=== PATIENT | male | born 1955 | race Caucasian/White ===

== ENCOUNTER → 2024-10-06 06:42 | Outpatient (REF) | payer MEDICARE, SELFPAY | LOC: MRI 3T 06:42 | DX: S46.012S Strain of muscle(s) and tendon(s) of the rotator cuff of left shoulder, sequela (principal) | CPT/HCPCS: 73221 ==

== ENCOUNTER 2024-12-26 18:26 | Day surgery (SDC) | payer OTHER, SELFPAY ==
[2024-12-26 18:26] VITALS: BMI 29.6
[2024-12-26 18:30] VITALS: BP 148/100
--- NOTE | 2024-12-26 18:37 | ED.GENMED ---
ED Provider Triage
<Luigi Kang PA-C - Last Filed: 12/26/24 18:38>
-
Patient seen by provider in Triage?: Seen in Triage
Attestation: A medical screening examination has been initiated by a qualified medical provider. Based on the assessment performed at this time, it has been determined that an emergent medical condition may exist and the patient has been informed
that further medical evaluation and possible additional diagnostic testing may be needed.
HPI: 69-year-old male sent in by family doctor for evaluation of left lower quadrant abdominal pain. Concern for possible hernia versus diverticulitis they wanted to get scan. There is been no vomiting or blood in the stools. No fever. The pain
is made worse if he sits. Patient looks nontoxic on assessment. Vital signs are stable start workup with basic labs urinalysis and CT with IV
Rest of the abdomen and pelvis
GENERAL: Alert , in no apparent distress
EYE: No visual abnormalities.
NECK: Trachea midline
ENT: No visible abnormalities.
LUNGS: No acute respiratory distress
NEUROLOGICAL: Alert and oriented
SKIN: Skin intact. No visible changes.
MUSCULOSKELETAL: Moving extremities normally
PSYCH: Normal and appropriate interaction.
This is a medical evaluation conducted in person to initiate diagnostic evaluation and provide initial therapeutics. Please see further documentation by the treating clinician.
History of Present Illness
<Luigi Kang PA-C - Last Filed: 12/26/24 18:38>
General
Chief Complaint: Abdominal Pain
Time Seen by Provider: 12/26/24 20:50
<Tigist Ambrocio MD - Last Filed: 12/26/24 21:30>
General
Source: patient
Exam Limitations: none
Nursing documentation reviewed up to this point in time: agreed with
History of Present Illness
History of Present Illness:
Patient is a pleasant 69-year-old man who reports that he developed a painful lump about 3 to 4 days ago in his left groin area. Patient reports that the discomfort is dull and mild. He denies nausea, vomiting, diarrhea and constipation. The
patient reports that he went to his primary care doctor for the discomfort and was told by his doctor that he likely has a hernia. It was suggested that he go to the ED for a CAT scan. Patient reports that he has minimal discomfort at rest, but it
gets slightly worse when he sits upright. Patient denies any burning when he urinates. He denies back pain.
Past History
<Tigist Ambrocio MD - Last Filed: 12/26/24 21:30>
Past History
ED Past Medical History: Cancer (Prostate cancer)
ED Past Surgical History: Orthopedic
Social History
Tobacco: Former smoker
Alcohol: Other
Drug: None
Personal: Other
Living: with family
Employment: Other
Family History
Family History: Other
Review of Systems
<Tigist Ambrocio MD - Last Filed: 12/26/24 21:30>
Review of Systems
Allergies reviewed?: Yes
All Other Systems: ROS reviewed and negative except as documented in HPI and ROS
Constitutional: Reports no symptoms
EENT: Reports no symptoms
Respiratory: Reports no symptoms
Cardiac: Reports no symptoms
ABD/GI: Reports abdominal pain
: Reports no symptoms
Musculoskeletal: Reports no symptoms
Skin: Reports no symptoms
Neurological: Reports no symptoms
Endocrine: Reports no symptoms
Hematologic/Lymphatic: Reports no symptoms
Psychiatric: Reports no symptoms
Phy Exam
<Tigist Ambrocio MD - Last Filed: 12/26/24 21:30>
Physical Exam
Physical Exam:
Physical Exam
General: no apparent distress, not acutely ill, well and comfortable appearing
Neck: supple.
Heart: s1/s2 regular rate and rhythm, no murmur. equal radial and femoral pulses bilaterally.
Lungs: no acute respiratory distress. clear bilaterally
Abdomen: normal bowel sounds. not tender. no CVAT. Abdomen is soft and nondistended throughout. Reproducible left inguinal hernia that is barely tender to the touch
Neuro: alert and oriented. no focal neurological deficits
Skin: no rash
Psychiatric: well kept. interactive and cooperative
Extremities: no edema. no calf tenderness. negative homans. good distal pulses
Course
<Luigi Kang PA-C - Last Filed: 12/26/24 18:38>
Orders/Labs/Results
Orders:
Orders
12/26/24 18:36
CT Abd/pelvis W Iv Cont Urgent
Comment:
Reason For Exam: llq pain
12/26/24 18:44
Complete Blood Count/With Diff Urgent
Comprehensive Metabolic Panel Urgent
12/26/24 21:19
Urinalysis Reflex To Culture Urgent
Date Specimen was Collected: 12/26/24
Time Specimen was Collected: 20:53
Abnormal Lab Results
12/26/24
18:44
MPV 10.5 H fL
(7.4-10.4)
Absolute Monos (auto) 0.8 H 10^3/uL
(0.1-0.6)
Monocytes % 11.3 H %
(1.7-9.3)
BUN 26 H mg/dl
(9-20)
Glucose 107 H mg/dl
(70-99)
12/26/24 18:44
12/26/24 18:44
Vital Signs
Initial and Last Documented VS:
Initial Vital Signs
Temp Pulse Resp BP Pulse Ox
97.8 F 76 16 148/100 96
12/26/24 18:30 12/26/24 18:30 12/26/24 18:30 12/26/24 18:30 12/26/24 18:30
Last Documented Vital Signs
Temp Pulse Resp BP Pulse Ox
97.8 F 76 16 148/100 96
12/26/24 18:30 12/26/24 18:30 12/26/24 21:17 12/26/24 18:30 12/26/24 18:30
<Tigist Ambrocio MD - Last Filed: 12/26/24 21:30>
Orders/Labs/Results
Orders:
Orders
12/26/24 18:36
CT Abd/pelvis W Iv Cont Urgent
Comment:
Reason For Exam: llq pain
12/26/24 18:44
Complete Blood Count/With Diff Urgent
Comprehensive Metabolic Panel Urgent
12/26/24 21:19
Urinalysis Reflex To Culture Urgent
Date Specimen was Collected: 12/26/24
Time Specimen was Collected: 20:53
Abnormal Lab Results
12/26/24
18:44
MPV 10.5 H fL
(7.4-10.4)
Absolute Monos (auto) 0.8 H 10^3/uL
(0.1-0.6)
Monocytes % 11.3 H %
(1.7-9.3)
BUN 26 H mg/dl
(9-20)
Glucose 107 H mg/dl
(70-99)
12/26/24 18:44
12/26/24 18:44
Vital Signs
Initial and Last Documented VS:
Initial Vital Signs
Temp Pulse Resp BP Pulse Ox
97.8 F 76 16 148/100 96
12/26/24 18:30 12/26/24 18:30 12/26/24 18:30 12/26/24 18:30 12/26/24 18:30
Last Documented Vital Signs
Temp Pulse Resp BP Pulse Ox
97.8 F 76 16 148/100 96
12/26/24 18:30 12/26/24 18:30 12/26/24 21:17 12/26/24 18:30 12/26/24 18:30
<Tigist Ambrocio MD - Last Filed: 12/26/24 21:30>
MDM/Problems Addressed
Differential Diagnosis Includes:
Fat-containing inguinal hernia, bowel containing inguinal hernia, incarcerated hernia, acute diverticulitis
MDM/Problems Addressed:
Patient presents with acute pain in left inguinal area
Acute Exacerbation and/or Progression of Chronic Illness:
Patient is acutely hypertensive, likely due to anxiety of being in the ED. He has no chest pain or headache
Acute Exacerbation and/or Progression of Chronic Illness: HTN
<Tigist Ambrocio MD - Last Filed: 12/26/24 21:30>
*Pulse Oximetry
Patient hypoxic: no
*EKG
Interpreted by ED Provider?: NA
*Fuel Assembler Interpretation
Rate: Fuel Assembler- N/A
*Critical Care Note
Total Time (30-74mins, 75-104mins- exclusive of procedures): Not Applicable
Data Reviewed
Source: patient
ED Attending Note
<Luigi Kang PA-C - Last Filed: 12/26/24 18:38>
-
Portions of this chart may have been created with voice recognition software.� Occasional wrong word or��sound alike� substitutions may have occurred due to the inherent limitations of voice recognition software.
Discharge Plan
Departure
Prescriptions:
No Action
simvastatin 20 MG tablet
20 mg PO QPM
naproxen sodium [Aleve] 220 MG tablet
1 - 2 tab PO PRN PRN (Reason: pain)
sennosides [senna] 1 TABLET tablet
2 tab PO BID 0RF
acetaminophen 325 MG tablet
650 mg PO Q4HWA 0RF
polyethylene glycol 3350 17 GRAMS powder in packet
17 grams PO DAILY 0RF
magnesium hydroxide 30 ML suspension
30 ml PO DAILYPRN PRN (Reason: constipation) 0RF
aspirin 325 MG tablet,delayed release (DR/EC)
325 mg PO DAILY 0RF
docusate sodium 100 MG capsule
100 mg PO BID 0RF
oxycodone 5 MG tablet
1 - 2 tab PO Q4HPRN PRN (Reason: moderate pain) Qty: 90 0RF
Interventions
Interventions:
*Risk Screen - Suicide Last Done: 12/26/24 18:30
*General Assessment Last Done: 12/26/24 18:30
*Neglect/Abuse Screening Last Done: 12/26/24 18:30
*ED COVID-19 Vaccine History Last Done: 12/26/24 18:30
Discharge Date and Time
Print Language: SAMOAN
[2024-12-26 18:51] LABS: % Basophils 0.4 % (0-2); % Immature Granulocytes 0.1 % (0-0.5); % Lymphocytes 28.4 % (20.5-51.1); % Monocytes 11.3 % (1.7-9.3); % Neutrophils 57.8 % (42.2-75.2); Absolute Eosinophils 0.2 10^3/uL (0-0.7); Absolute Lymphocytes 2.1 10^3/uL (1.2-3.4); Absolute Monocytes 0.8 10^3/uL (0.1-0.6); Absolute Neutrophils 4.2 10^3/uL (1.4-6.5); Hematocrit 50.7 % (39.0-52.0); Hemoglobin 17.8 g/dL (13.0-18.0); Mean Corp Hgb Conc. 35.1 g/dL (33.0-37.0); Mean Corpuscular Hgb 30.5 pg (27.0-31.0); Mean Corpuscular Volume 86.8 fL (80.0-94.0); Mean Platelet Volume 10.5 fL (7.4-10.4); Nucleated Red Blood Cells % 0 % (-); Platelet Count 199 10^3/uL (130-400); Red Blood Cell Count 5.84 10^6/uL (4.70-6.10); Red Cell Dist. Width 12.6 % (11.5-14.5); White Blood Cell Count 7.4 10^3/uL (4.8-10.8)
[2024-12-26 19:08] LABS: ALT (SGPT) 39 U/L (0-50); AST (SGOT) 28 U/L (17-59); Albumin 4.8 g/dl (3.5-5.0); Alkaline Phosphatase 91 U/L (38-126); Blood Urea Nitrogen 26 mg/dl (9-20); Calcium 9.5 mg/dl (8.4-10.2); Carbon Dioxide 23 mmol/L (22-30); Chloride 102 mmol/L (98-107); Glucose 107 mg/dl (70-99); Potassium 4.1 mmol/L (3.5-5.1); Sodium 137 mmol/L (135-145); Total Bilirubin 0.8 mg/dl (0.2-1.3); Total Protein 7.3 g/dl (6.3-8.2); eGFR > 60.00
[2024-12-26 21:27] LABS: Urine Albumin 1+ (Neg - Trace); Urine Bilirubin Negative (Negative); Urine Character Clear (Clear); Urine Color Yellow; Urine Glucose Negative (Negative); Urine Ketone Negative (Negative); Urine Leukocyte Negative (Negative); Urine Nitrite Negative (Negative); Urine Occult Blood Negative (Negative); Urine Urobilinogen Negative (Neg - 1+)
--- NOTE | 2024-12-26 21:32 | ED.GENMED ---
History of Present Illness
<Tigist Ambrocio MD - Last Filed: 12/26/24 21:33>
General
Chief Complaint: Abdominal Pain
Source: patient
Exam Limitations: none
Time Seen by Provider: 12/26/24 20:50
Nursing documentation reviewed up to this point in time: agreed with
History of Present Illness
History of Present Illness:
Please refer to my note from same visit. I signed prematurely
Past History
<Tigist Ambrocio MD - Last Filed: 12/26/24 21:33>
Past History
ED Past Medical History: Cancer (Prostate cancer)
ED Past Surgical History: Orthopedic
Social History
Tobacco: Former smoker
Alcohol: Other
Drug: None
Personal: Other
Living: with family
Employment: Other
Family History
Family History: Other
Review of Systems
<Tigist Ambrocio MD - Last Filed: 12/26/24 21:33>
Review of Systems
Allergies reviewed?: Yes
All Other Systems: ROS reviewed and negative except as documented in HPI and ROS
Constitutional: Reports no symptoms
EENT: Reports no symptoms
Respiratory: Reports no symptoms
Cardiac: Reports no symptoms
ABD/GI: Reports abdominal pain
: Reports no symptoms
Musculoskeletal: Reports no symptoms
Skin: Reports no symptoms
Neurological: Reports no symptoms
Endocrine: Reports no symptoms
Hematologic/Lymphatic: Reports no symptoms
Psychiatric: Reports no symptoms
Phy Exam
<Tigist Ambrocio MD - Last Filed: 12/26/24 21:33>
Physical Exam
Physical Exam:
Please refer to my note from same visit.
Course
<Tigist Ambrocio MD - Last Filed: 12/26/24 21:33>
Orders/Labs/Results
Orders:
Orders
12/26/24 18:36
CT Abd/pelvis W Iv Cont Urgent
Comment:
Reason For Exam: llq pain
12/26/24 18:44
Complete Blood Count/With Diff Urgent
Comprehensive Metabolic Panel Urgent
12/26/24 21:19
Urinalysis Reflex To Culture Urgent
Date Specimen was Collected: 12/26/24
Time Specimen was Collected: 20:53
Urine Microscopic Reflex Cult Urgent
12/26/24 23:58
0.9% Sodium Chloride 1000 ml [Nss] 1,000 ml IV BOLUS
Abnormal Lab Results
12/26/24 12/26/24
18:44 21:19
MPV 10.5 H fL
(7.4-10.4)
Absolute Monos (auto) 0.8 H 10^3/uL
(0.1-0.6)
Monocytes % 11.3 H %
(1.7-9.3)
BUN 26 H mg/dl
(9-20)
Glucose 107 H mg/dl
(70-99)
Urine Bacteria (Reflex) Few A
(Negative)
Urine Albumin (Reflex) 1+ A
(Neg - Trace)
12/26/24 18:44
12/26/24 18:44
Vital Signs
Initial and Last Documented VS:
Initial Vital Signs
Temp Pulse Resp BP Pulse Ox
36.6 C 76 16 148/100 96
12/26/24 18:30 12/26/24 18:30 12/26/24 18:30 12/26/24 18:30 12/26/24 18:30
Last Documented Vital Signs
Temp Pulse Resp BP Pulse Ox
36.6 C 61 16 149/78 98
12/26/24 18:30 12/26/24 22:00 12/26/24 22:00 12/26/24 22:00 12/26/24 22:00
<Kris Robin Maxwell, DO - Last Filed: 12/27/24 01:47>
Orders/Labs/Results
Orders:
Orders
12/26/24 18:36
CT Abd/pelvis W Iv Cont Urgent
Comment:
Reason For Exam: llq pain
12/26/24 18:44
Complete Blood Count/With Diff Urgent
Comprehensive Metabolic Panel Urgent
12/26/24 21:19
Urinalysis Reflex To Culture Urgent
Date Specimen was Collected: 12/26/24
Time Specimen was Collected: 20:53
Urine Microscopic Reflex Cult Urgent
12/26/24 23:58
0.9% Sodium Chloride 1000 ml [Nss] 1,000 ml IV BOLUS
Abnormal Lab Results
12/26/24 12/26/24
18:44 21:19
MPV 10.5 H fL
(7.4-10.4)
Absolute Monos (auto) 0.8 H 10^3/uL
(0.1-0.6)
Monocytes % 11.3 H %
(1.7-9.3)
BUN 26 H mg/dl
(9-20)
Glucose 107 H mg/dl
(70-99)
Urine Bacteria (Reflex) Few A
(Negative)
Urine Albumin (Reflex) 1+ A
(Neg - Trace)
12/26/24 18:44
12/26/24 18:44
Vital Signs
Initial and Last Documented VS:
Initial Vital Signs
Temp Pulse Resp BP Pulse Ox
36.6 C 76 16 148/100 96
12/26/24 18:30 12/26/24 18:30 12/26/24 18:30 12/26/24 18:30 12/26/24 18:30
Last Documented Vital Signs
Temp Pulse Resp BP Pulse Ox
36.6 C 61 16 149/78 98
12/26/24 18:30 12/26/24 22:00 12/26/24 22:00 12/26/24 22:00 12/26/24 22:00
<Tigist Ambrocio MD - Last Filed: 12/26/24 21:33>
*Pulse Oximetry
Patient hypoxic: no
*EKG
Interpreted by ED Provider?: NA
*Diet Consultant Interpretation
Rate: Diet Consultant- N/A
*Critical Care Note
Total Time (30-74mins, 75-104mins- exclusive of procedures): Not Applicable
Data Reviewed
Source: patient
<Kris Maxwell DO - Last Filed: 12/27/24 01:47>
Update Note
Update Note:
I evaluated at bedside 11:45 PM. The patient was laying flat and I did try to reduce the fat-containing hernia but cannot reduce any further. There is inflammatory changes therefore concern for incarceration however this is not containing bowel.
I discussed case with Dr. Shah, on-call surgery. The patient does have rather significant tenderness at the fat-containing hernia and does have abnormal CT imaging concerning for incarceration. Fortunately, there is no bowel associated with the
incarcerated area. Dr. Shah accepts to his service, n.p.o., and he will reassess the following day.
ED Attending Note
<Tigist Ambrocio MD - Last Filed: 12/26/24 21:33>
-
Portions of this chart may have been created with voice recognition software.� Occasional wrong word or��sound alike� substitutions may have occurred due to the inherent limitations of voice recognition software.
Discharge Plan
Departure
Patient Disposition: Admit
Date of Disposition: 12/27/24
Time of Disposition: 00:24
Presentation/result/management discussed w/ accepting MD/DO: dr shah
Patient with high blood pressure during this ER visit?: Yes
Condition: Good
Discharge Problem:
Incarcerated left inguinal hernia
Instructions: Groin hernias, BLOOD PRESSURE
Prescriptions:
No Action
simvastatin 20 MG tablet
20 mg PO QPM
naproxen sodium [Aleve] 220 MG tablet
1 - 2 tab PO PRN PRN (Reason: pain)
sennosides [senna] 1 TABLET tablet
2 tab PO BID 0RF
acetaminophen 325 MG tablet
650 mg PO Q4HWA 0RF
polyethylene glycol 3350 17 GRAMS powder in packet
17 grams PO DAILY 0RF
magnesium hydroxide 30 ML suspension
30 ml PO DAILYPRN PRN (Reason: constipation) 0RF
aspirin 325 MG tablet,delayed release (DR/EC)
325 mg PO DAILY 0RF
docusate sodium 100 MG capsule
100 mg PO BID 0RF
oxycodone 5 MG tablet
1 - 2 tab PO Q4HPRN PRN (Reason: moderate pain) Qty: 90 0RF
Referrals:
Js Monae CRNP [Family Provider] -
Zackery Shah MD [Active] - (Call tomorrow to schedule an appointment as soon as possible)
Interventions
Interventions:
*Risk Screen - Suicide Last Done: 12/26/24 18:30
*General Assessment Last Done: 12/26/24 18:30
*Neglect/Abuse Screening Last Done: 12/26/24 18:30
ED- Fall Risk Assessment Last Done: 12/26/24 21:27
*ED COVID-19 Vaccine History Last Done: 12/26/24 18:30
BU-Ijnutg-Tuvarqpsxm Assessment Last Done: 12/26/24 21:27
Discharge Date and Time
Print Language: ROMANSH
[2024-12-26 21:36] LABS: Urine Bacteria Few (Negative); Urine Mucus Many; Urine Red Blood Cell 0-2 /HPF (0-2); Urine Squamous Cell 0-2 /LPF (Few); Urine White Cell 0-2 /HPF (0-5)
[2024-12-26 22:00] VITALS: BP 149/78
[2024-12-27] VITALS (19 sets, daily range): BP systolic 61–159; BP diastolic 29–102
[2024-12-27] MEDS: NSS 1000 IV ×2 (00:44→03:18)
--- NOTE | 2024-12-27 01:11 | HPS.HSE ---
Family Physician
-
Family Physician: JAVIER Covarrubias
Chief Complaint
-
Abdominal Pain
History of Present Illness
Patient is a 69 year old male with a past medical history significant for HLD and Prostate cancer, presents to the emergency department for a painful lump in his left groin area for the past 3-4 days. Patient reports that pain was mild at first on
Thursday night/Thursday morning but has increased. Patient reports no pain when laying flat, reports pain rated at 7 out of 10 when sitting up. Reports that he did take two Aleve this morning around 6 am. Patient did help 'tap a keg' on Thursday night
and lifted the keg. The patient reports that he went to his primary care doctor for the discomfort and was told by his doctor that he likely has a hernia. It was suggested that he go to the ED for a CAT scan. Patient denies fever, nausea,
vomiting, diarrhea and constipation. Patient denies any burning with urination. He denies back pain.
In the emergency department, labs grossly unremarkable, vital signs stable, UA shows few bacteria, shows 1+ urine albumin, negative for leukocyte esterase and nitrates.
CT Abd/Pelvis with IV contrast
IMPRESSION: Fat-containing left inguinal hernia with findings suggesting incarceration/strangulation.
Mild diverticulosis. No evidence of acute diverticulitis.
Benign left adrenal adenoma.
Mild hepatic fatty infiltration.
Case discussed with Dr. Shah, on-call surgery. The patient does have rather significant tenderness at the fat-containing hernia and does have abnormal CT imaging concerning for incarceration. Fortunately, there is no bowel associated with the
incarcerated area. Dr. Shah accepts to his service, n.p.o., and he will reassess the following day.
Medical History
Past Medical History
Past Medical History: Reports Cancer (Prostate) and Other (HLD)
Past Surgical History: Reports Orthopedic (Miniscus repair L Knee, Reconstructive right knee surgery, , Left knee replacement 2016) and Urological (Vasectomy, 1984)
Social History
Tobacco: Non-smoker
Alcohol: Occasional
Drug: None
Personal:
Living: With Family
Family History
Family History: Not pertinent
Allergies / Home Medications
Allergies reflects when Allergies were last updated in [employer].
Home Medications with original date entered in [employer]
Allergy/Medication List:
Patient Allergies
Allergy/AdvReac Type Severity Reaction Status Date / Time
Penicillins Allergy Rash Verified 12/26/24 18:33
Home Medications
�Medication �Instructions �Recorded
naproxen sodium 220 mg tablet 1 - 2 tab PO PRN PRN pain 05/18/17
(Aleve)
simvastatin 20 mg tablet 20 mg PO QPM 05/18/17
acetaminophen 325 mg tablet 650 mg (2 x 325 mg) PO Q4HWA 06/16/17
aspirin 325 mg tablet,delayed 325 mg PO DAILY 06/16/17
release
docusate sodium 100 mg capsule 100 mg PO BID 06/16/17
magnesium hydroxide 400 mg/5 mL 30 ml PO DAILYPRN PRN constipation 06/16/17
oral suspension
oxycodone 5 mg tablet 1 - 2 tab PO Q4HPRN PRN moderate 06/16/17
pain #90 tabs
polyethylene glycol 3350 17 gram 17 grams PO DAILY 06/16/17
oral powder packet
sennosides 8.6 mg tablet (senna) 2 tab PO BID 06/16/17
Review of Systems
-
History Source: Patient
Constitutional: Reports No Symptoms
EENT: Reports No Symptoms
Respiratory: Reports No Symptoms
Cardiac: Reports No Symptoms
Abdomen/GI: Reports Abdominal Pain (left lower quadrant)
: Reports No Symptoms
Musculoskeletal: Reports No Symptoms
Skin: Reports No Symptoms
Neurological: Reports No Symptoms
Physical Exam
Vital Signs
Vital Signs
Temp Pulse Resp BP Pulse Ox
97.8 F 61 16 149/78 98
12/26/24 18:30 12/26/24 22:00 12/26/24 22:00 12/26/24 22:00 12/26/24 22:00
Physical Exam
General: Well Developed and Well Nourished
HEENT: Moist mucous membranes and PERRLA
Respiratory: Clear
Cardiac: Regular Rhythm
GI: Soft and Tender (left lower quadrant)
Skin: Warm and Jaundice
Neuro: AO x 3
Psych: Calm and Intact Judgment/Insight
Laboratory Results
-
12/26/24 18:44
12/26/24 18:44
Laboratory Results
Total Bilirubin 0.8 mg/dl (0.2-1.3) 12/26/24 18:44
AST 28 U/L (17-59) 12/26/24 18:44
ALT 39 U/L (0-50) 12/26/24 18:44
Alkaline Phosphatase 91 U/L (38-126) 12/26/24 18:44
Data Reviewed
-
CT Scan: Report Reviewed by me
Lab Data: Labs Reviewed by me
Impression/Plan
-
IMPRESSION:
Patient is a 69 year old male with a past medical history significant for HLD and Prostate cancer, presents to the emergency department for a painful lump in his left groin area for the past 3-4 days.
PLAN:
Incarcerated left inguinal hernia
-Admit to General Surgery, Dr. Zackery Shah
-NPO, IV fluids
-Pain medication, antiemetics as needed.
HLD
-Continue home medications: Simvastatin
DVT Prophylaxis: Lovenox
Code Status: Full code
[2024-12-27 06:27] LABS: Hematocrit 48.7 % (39.0-52.0); Hemoglobin 17.1 g/dL (13.0-18.0); Mean Corp Hgb Conc. 35.1 g/dL (33.0-37.0); Mean Corpuscular Hgb 30.9 pg (27.0-31.0); Mean Corpuscular Volume 88.1 fL (80.0-94.0); Mean Platelet Volume 10.9 fL (7.4-10.4); Platelet Count 191 10^3/uL (130-400); Red Blood Cell Count 5.53 10^6/uL (4.70-6.10); Red Cell Dist. Width 12.3 % (11.5-14.5); White Blood Cell Count 6.5 10^3/uL (4.8-10.8)
[2024-12-27 06:44] LABS: Blood Urea Nitrogen 20 mg/dl (9-20); Carbon Dioxide 25 mmol/L (22-30); Chloride 102 mmol/L (98-107); Estimated Creatinine Clearance 100 ml/min; Glucose 108 mg/dl (70-99); Potassium 4.3 mmol/L (3.5-5.1); Sodium 137 mmol/L (135-145); eGFR > 60.00
--- NOTE | 2024-12-27 09:05 | CON.GS ---
Addendum entered and electronically signed by Jose Montoya MD 12/27/24 09:14:
Correction:
-- IV Morphine PRN
-- Abx: Clindamycin for ppx
Original Note:
Medical History
-
Chief Complaint: LEFT groin pain
History of Present Illness:
Patient is a 69 yo M with a PMH of HLD who presents with LEFT groin discomfort. Mr. Rios states that his symptoms began acutely approximately 5 days ago. Since that time he has had persistent and worsening pain as well as a subtle bulge. He
called his PCP who sent him to the ED for further workup and management. A CT scan was performed which demonstrated a LEFT indirect inguinal hernia containing fat with subtle fat stranding, without any evidence of bowel or obstruction. He has had
persistent pain. No fevers or chills. No nausea or vomiting. Continues to pass flatus and move his bowels. No symptoms on the RIGHT.
Past Medical History
Past Medical History: Hypercholesterolemia
Past Surgical History: None
Social History
Tobacco: Non-Smoker
Alcohol: Occasional
Drug: None
Personal:
Living: With Family
Family History
Family History: Reviewed & Not Pertinent
Allergies / Home Medications
Allergy/AdvReac Type Severity Reaction Status Date / Time
Penicillins Allergy Rash Verified 12/26/24 18:33
�Medication �Instructions �Recorded �Confirmed �Type
naproxen sodium 220 mg tablet 220 mg PO [id number] PRN mild to 05/18/17 12/27/24 History
(Aleve) moderate pain
cholecalciferol (vitamin D3) 25 25 mcg PO QPM 12/27/24 12/27/24 History
mcg (1,000 unit) tablet
simvastatin 40 mg tablet 40 mg PO QPM 12/27/24 12/27/24 History
Review of Systems
-
A 10 point review of systems was completed, and was negative except as per HPI.
Physical Exam
Vital Signs
Temp Pulse Resp BP Pulse Ox
97.8 F 61 16 128/86 95
12/26/24 18:30 12/26/24 22:00 12/26/24 22:00 12/27/24 07:00 12/27/24 07:30
12/26/24 12/27/24 12/28/24
06:59 06:59 06:59
Actual Weight 101.8 kg
Body Mass Index (BMI) 29.6
Lab Results
12/27/24 06:13
12/27/24 06:13
WBC 6.5 10^3/uL (4.8-10.8) 12/27/24 06:13
Hgb 17.1 g/dL (13.0-18.0) 12/27/24 06:13
Hct 48.7 % (39.0-52.0) 12/27/24 06:13
Plt Count 191 10^3/uL (130-400) 12/27/24 06:13
Abs Immat Gran (auto) 0.0 10^3/uL (0-0.05) 12/26/24 18:44
Neutrophils % 57.8 % (42.2-75.2) 12/26/24 18:44
Physical Exam
General: Well Developed, Well Nourished and No Apparent Distress
Respiratory: Non Labored Respirations
Cardiac: Regular Rhythm
GI: Soft, Non Tender and Non Distended
Genito-urinary: Inguinal Hernia (LEFT indirect inguinal hernia, slightly firm, partially reducible, pain with exam, no skin discoloration, no palpable RIGHT inguinal hernia)
Skin: Warm and Dry
Neuro: Nonfocal/Grossly Intact
Data Reviewed
-
CT Scan: Image Personally Visualized and interpreted and Report Reviewed by me
Labs: Labs Reviewed by me
Assessment / Plan
-
Patient is a 69 yo M p/w incarcerated LEFT inguinal hernia containing fat
The natural history and pathophysiology of inguinal hernias was discussed. Options for management were reviewed. Specifically we discussed further attempts at reduction and potential outpatient management versus surgical management during this
admission. The pros and cons of both approaches was discussed. Mr. Rios is quite sensitive with exam and wishes to proceed with surgical management at this time.
Plan for a laparoscopic possible open LEFT inguinal hernia repair with mesh. The procedure itself, as well as the risks, benefits, and alternatives was discussed. Specifically, we discussed the risks of bleeding, infection, injury to surrounding
structures (bowel, nerves, blood supply to testicle, and vas deferens), chronic groin discomfort, urinary retention, and recurrence. Typical post procedure recovery including pain management and the need for 4 weeks no heavy lifting or strenuous
activities was discussed. All questions answered. Consent signed.
-- Lap possible open LEFT inguinal hernia repair with mesh
-- NPO, IVF
-- Abx: Ancef ppx
-- Pain control: Tylenol and IV Dilaudid as needed
--- NOTE | 2024-12-27 09:14 | W.SUR.PREOP ---
Pre-Operative Surgical Note
-
I have examined this patient prior to the performance of the scheduled procedure.
The patient's condition is unchanged from the time of the current History and
Physical and the patient is able to undergo the scheduled procedure.
--- NOTE | 2024-12-27 13:50 | W.IMMPOSTOP ---
Surgical Immed Post Op Note
-
Primary Surgeon: Jan
Assisting Surgeon: None
Pre-op Diagnosis: Incarcerated LEFT inguinal hernia
Post-op Diagnosis: Incarcerated LEFT inguinal hernia
Procedure Performed: Open LEFT inguinal hernia repair with mesh
Anesthesia Type: General
Specimen / Cultures: None
Estimated Blood Loss: 7 cc
Complications: None
Operative Findings:
1. Unable to reduce hernia on induction
2. Indirect inguinal hernia containing fat --> hemorrhagic fluid filled sac, indurated necrotic? fat excised, sac closed
3. Teri mesh repair with Bard reg wt flat mesh, secured with 2-0 PDS
== END 2024-12-27 13:15 | disposition home or self-care (01) ==
LOC: SDS 18:26
PROVIDERS: Nurse Practitioner Family; Physician Assistant; Surgery; ATTENDING PHYSICIAN Surgery
PROC: 0YU60JZ Supplement Left Inguinal Region with Synthetic Substitute, Open Approach (ICD-10-PCS; 2024-12-26)
DX: K40.30 Unilateral inguinal hernia, with obstruction, without gangrene, not specified as recurrent (principal); E78.5 Hyperlipidemia, unspecified; Z85.46 Personal history of malignant neoplasm of prostate
CPT/HCPCS: 49507; 74177; 80048; 80053; 81003; 81015; 85025; 85027; 96360; 99285; C1781; Q9967

== ENCOUNTER 2025-01-25 06:12 | Day surgery (SDC) | payer MEDICARE, SELFPAY ==
[2025-01-25] VITALS (9 sets, daily range): BP systolic 105–168; BP diastolic 60–94; BMI 27.8
[2025-01-25] MEDS: NORMOSOL-R/PLASMALYTE-A 1000 IV (13:40)
--- NOTE | 2025-01-25 18:18 | W.IMMPOSTOP ---
Surgical Immed Post Op Note
-
Primary Surgeon: Shadi Keith MD
Assisting Surgeon: Norma Duran PA-C
Pre-op Diagnosis: left shoulder rotator cuff tear, AC joint arthritis
Post-op Diagnosis: left shoulder rotator cuff tear, AC joint arthritis, labral degeneration
Procedure Performed: arthroscopic left shoulder rotator cuff repair, labral debridement, AC joint resection
Anesthesia Type: general
Specimen / Cultures: none
Estimated Blood Loss: 25mL
Complications: none apparent
Implants: Arthrex 4.75mm Swivelock anchor x1
Operative Findings: labral degeneration, grade 2 glenoid chondrosis, intact biceps tendon without subluxation or tendinopathy, infraspinatus tear
Operative dictation #: [id number]
== END 2025-01-25 19:51 | disposition home or self-care (01) ==
LOC: SDS 06:12
PROVIDERS: ATTENDING PHYSICIAN Student in an Organized Health Care Education/Training Program
DX: S46.012A Strain of muscle(s) and tendon(s) of the rotator cuff of left shoulder, initial encounter (principal); X58.XXXA Exposure to other specified factors, initial encounter; M19.012 Primary osteoarthritis, left shoulder
CPT/HCPCS: 29827; 93005; C1713